=== PATIENT | female | born 2000 | race Caucasian/White ===

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

== ENCOUNTER 2020-01-21 21:37 | Emergency (ER) | payer MEDICAID, OTHER ==
[~2020-01-21] VITALS: Ht 167.6 cm; Wt 82.6 kg
[~2020-01-21 21:37] MED LIST: AMOX1TAB61 PO
[2020-01-21 22:13] LABS: BILIRUBIN,URINE NEGATIVE (NEG); CLARITY,URINE CLEAR; COLOR,URINE YELLOW; NITRITE,URINE NEGATIVE (NEG); PROTEIN,URINE NEGATIVE (NEG-TRACE)
[2020-01-21 22:17] LABS: BACTERIA,URINE MODERATE /HPF (0-FEW); SQUAMOUS EPITHELIAL CELL,UR MOD /LPF
[2020-01-21 22:18] LABS: RBC,URINE 0 /HPF (0-2); WBC,URINE OCC /HPF (0-4)
--- NOTE | 2020-01-21 22:22 | PHYS DOC ---
Past Medical History Past Medical History: No Pertinent History Additional Past Medical Histor: 3 prior miscarriages Past Surgical History: Appendectomy Smoking Status: Never Smoker Alcohol Use: None Drug Use: None General Adult EDM: Chief Complaint: PELVIC PAIN HPI: HPI: Patient is a 19 year old female 4 para, with 1 miscarriage, currently 11 weeks with history of appendectomy who presents to the ED today complaining of 5 out of 10 right lower quadrant/pelvic abdominal pain described as achy and intermittent for 2 weeks. Patient denies anything specifically exacerbating or relieving the pain. She reports she was given instructions to take Tylenol by her own TAPERING MACHINE OPERATOR at the [facility] where she receives OB care. She reports she was seen at the health department today and had UA done which was negative. Patient denies any urgency, frequency, dysuria, concerns for STDs. Review of Systems: Review of Systems: Constitutional: Denies fever or chills. [] Eyes: Denies change in visual acuity. [] HENT: Denies nasal congestion or sore throat. [] Respiratory: Denies cough or shortness of breath. [] Cardiovascular: Denies chest pain or edema. [] GI: Reports right lower quadrant/pelvic pain, denies nausea, vomiting, bloody stools or diarrhea. [] : Denies dysuria. [] Musculoskeletal: Denies back pain or joint pain. [] Integument: Denies rash. [] Neurologic: Denies headache, focal weakness or sensory changes. [] Psychiatric: Denies depression or anxiety. [] Heart Score: Risk Factors: Risk Factors: DM, Current or recent (<one month) smoker, HTN, HLP, family history of CAD, obesity. Risk Scores: Score 0 - 3: 2.5% MACE over next 6 weeks - Discharge Home Score 4 - 6: 20.3% MACE over next 6 weeks - Admit for Clinical Observation Score 7 - 10: 72.7% MACE over next 6 weeks - Early Invasive Strategies Allergies: Allergies: Allergies Coded Allergies Type Severity Reaction Last Updated Verified No Known Drug Allergies 12/14/13 No Physical Exam: PE: Constitutional: Well developed, well nourished, no acute distress, non-toxic appearance. [] HENT: Normocephalic, atraumatic, bilateral external ears normal, oropharynx moist, no oral exudates, nose normal. [] Eyes: PERRLA, EOMI, conjunctiva normal, no discharge. [] Neck: Normal range of motion, no tenderness, supple, no stridor. [] Cardiovascular:Heart rate regular rhythm, no murmur [] Lungs & Thorax: Bilateral breath sounds clear to auscultation [] Abdomen: Bowel sounds normal, soft, no tenderness, no masses, no pulsatile masses. [] Pelvic exam External pelvic appears normal, cervix visualized, closed, no CMT, no adnexal tenderness, no bleeding. Skin: Warm, dry, no erythema, no rash. [] Back: No tenderness, no CVA tenderness. [] Extremities: No tenderness, no cyanosis, no clubbing, ROM intact, no edema. [] Neurologic: Alert and oriented X 3, normal motor function, normal sensory function, no focal deficits noted. [] Psychologic: Affect normal, judgement normal, mood normal. [] Current Patient Data: Vital Signs: Vital Signs Date Time Temp Pulse Resp B/P (MAP) Pulse Ox O2 Delivery O2 Flow Rate FiO2 01/21/20 21:45 98.3 95 18 143/83 (103) 99 Room Air 98.3 EKG: EKG: [] Radiology/Procedures: Radiology/Procedures: [] Course & Med Decision Making: Course & Med Decision Making Pertinent Labs and Imaging studies reviewed. (See chart for details) This is a 19-year-old female patient 4 para 1 with 1 miscarriage currently 11 weeks presenting to the ED today complaining of right pelvic pain/right lower quadrant abdominal pain for 2 weeks. Patient was seen by her TAPERING MACHINE OPERATOR at the health department today and had a negative UA. She has his tory of appendectomy. Urine analysis negative for nitrates, negative for leukocytes, noted for many squamous cells epithelium and bacteria, it is likely contaminated. Culture pending. Wet prep positive for clue cells, discharged on Flagyl. OB ultrasound preliminary read-live UP 11 W 6 days with HR of 173 corpus leuteum cyst on the left ovary. D/c to home. F/u with OB next week Dragon Disclaimer: Kenna Disclaimer: This electronic medical record was generated, in whole or in part, using a voice recognition dictation system. Departure Departure Impression: Primary Impression: Pelvic pain during Additional Impression: Bacterial vaginosis Disposition: HOME, SELF-CARE Condition: STABLE Referrals: BUZZ SKELTON (PCP) Follow-up with your TAPERING MACHINE OPERATOR in a week Patient Instructions: Abdominal Pain During , Bacterial Vaginosis, [id number] Additional Instructions: You were evaluated in the emergency room for pelvic pain, your ultrasound shows 11 weeks 6 days . You were also noted to have bacterial vaginosis, will put you on antibiotics, sure you complete them. Follow-up with your doctor in 1 to 2 weeks, take Tylenol as needed for pain Scripts Metronidazole (FLAGYL) 500 Mg Tablet 1 TAB PO BID, #14 TAB Prov: VELMA WATSON APRN 01/21/20 VELMA WATSON APRN Jan 21, 2020 22:22
[2020-01-21 22:30] LABS: AMPHETAMINE/METHAMPHETAMINE NEG (NEG); BARBITURATES NEG (NEG); BENZODIAZEPINES NEG (NEG); CANNABINOIDS NEG (NEG); COCAINE NEG (NEG); METHADONE NEG (NEG); OPIATES NEG (NEG); PHENCYCLIDINE NEG (NEG)
[2020-01-21] MEDS ORDERED: METR500T PO (22:37)
--- NOTE | 2020-01-21 22:44 | RAD ---
OB ultrasound less than 14 weeks HISTORY: Right-sided pain Sonographic examination of the was performed by transabdominal technique and multiple static images were obtained. FINDINGS: There is a single live intrauterine . The heartbeat is confirmed at 173 beats for minute. The crown-rump length of 5.24 cm corresponds with a 11 week 6 day gestational age and estimated date confinement of August 05, 2020. The LP of 10/20/2019 corresponds with 13 week 2 day gestational age and estimated date of confinement of July 26, 2020. The right ovary appears normal and measures 4.8 x 2.5 x 1.9 cm. The left ovary measures 4.0 x 3.9 x 2.9 cm and contains a 2.1 cm corpus luteal cyst. There is normal ovarian blood flow bilaterally. IMPRESSION: 1. Single live intrauterine at 13 weeks 2 days gestational age. Size by ultrasound is within one standard deviation. 2. No abnormality identified. 3. A short-term follow-up ultrasound could be performed if clinically indicated otherwise a structural survey would be performed at 18-21 weeks gestational age. Electronically signed by: Ben Rain III, MD (01/21/2020 10:41 PM) [id number]
[2020-01-22 00:14] VITALS: BP 134/82
[2020-01-23 18:09] LABS: GC PROBE Negative (Negative)
== END 2020-01-21 23:28 | disposition home or self-care (01) ==
LOC: ER 21:37
DX: O26.891 Other specified pregnancy related conditions, first trimester (principal); R10.2 Pelvic and perineal pain; O23.591 Infection of other part of genital tract in pregnancy, first trimester; B96.89 Other specified bacterial agents as the cause of diseases classified elsewhere; N83.12 Corpus luteum cyst of left ovary; Z90.89 Acquired absence of other organs; Z3A.11 11 weeks gestation of pregnancy
CPT/HCPCS: 76801; 80307; 81001; 87086; 87491; 87591; 99284; Q0111